=== PATIENT | female | born 1960 | race Caucasian/White ===

== ENCOUNTER 2017-08-15 17:29 | Emergency (ER) | payer MEDICAID ==
[~2017-08-15] VITALS: Ht 157.5 cm; Wt 59.0 kg
[~2017-08-15 17:29] MED LIST: ACET325T14 PO; ARIP10TA33 PO; AZIT250T89 PO; BENZ1TAB61 PO; CETI10TA32 PO; DIVA-68 PO; DIVA500T17 PO; IBUP-1223 PO; LEVO500T47 PO; LISI-167 PO; LORA10TA62 PO; LURA20TA PO; METH500T7 PO; NICO-487 TD; PALI6TAB3 IM; PRED20TA PO; TRAM50TA2 PO; TRAZ100T15 PO; TRAZ50TA18 PO; [UNRECOGNIZED DRUG - CODE] PO; invega IM
[2017-08-15 18:25] LABS: BASOPHILS % (AUTO) 0 % (0-1); EOSINOPHILS # (AUTO) 0.01 x10^3/uL (0-0.4); EOSINOPHILS % (AUTO) 0 % (1-7); LYMPHOCYTES # (AUTO) 2.13 x10^3/uL (1-3.4); LYMPHOCYTES % (AUTO) 23 % (22-44); MD NO; MEAN CORPUSCULAR HEMOGLOBIN 31.1 pg (27.0-34.8); MEAN CORPUSCULAR HGB CONC 33.5 g/dL (32.4-35.8); MEAN CORPUSCULAR VOLUME 92.9 fL (80-100); MEAN PLATELET VOLUME 7.3 fL (7.4-10.4); MONOCYTES # (AUTO) 0.36 x10^3/uL (0.2-0.8); MONOCYTES % (AUTO) 4 % (2-9); NEUTROPHILS # (AUTO) 6.66 x10^3/uL (1.8-6.8); NEUTROPHILS % (AUTO) 73 % (42-75); PLATELET COUNT 389 x10^3/uL (130-400); RED BLOOD COUNT 4.66 x10^6/uL (3.82-5.3); RED CELL DISTRIBUTION WIDTH 14.1 % (9.6-15.2)
[2017-08-15] MEDS ORDERED: SODIUM CHLORIDE FLUSH 10ML SYR IVF ONE (18:30)
[2017-08-15] MEDS ORDERED: SODIUM CHLORIDE 0.9% 1,000ML IVBOLUS ONE (18:30)
[2017-08-15 18:34] LABS: ALBUMIN 4.1 g/dL (3.4-5.0); ANION GAP 11 mmol/L (5-15); CHLORIDE 107 mmol/L (98-107)
[2017-08-15] MEDS ORDERED: HYDROcodone/APAP 5/325 TABLET PO ONE (21:00)
[2017-08-15] MEDS ORDERED: ONDANSETRON ODT 4 MG PO ONE (21:00)
[2017-08-15] MEDS ORDERED: ONDANSETRON ODT 4 MG ONE (21:06)
[2017-08-15] MEDS ORDERED: HYDROcodone/APAP 5/325 TABLET ONE (21:07)
[2017-08-15 22:07] VITALS: BP 113/89
[2017-08-16] MEDS ORDERED: ATIVAN (03:05)
[2017-08-16] MEDS ORDERED: PEPCID (03:05)
== END 2017-08-15 22:12 | disposition home or self-care (01) ==
LOC: ED 22:07
DX: S09.90XA Unspecified injury of head, initial encounter (principal); G89.29 Other chronic pain; I10 Essential (primary) hypertension; J44.9 Chronic obstructive pulmonary disease, unspecified; F31.9 Bipolar disorder, unspecified; F41.9 Anxiety disorder, unspecified; Z86.73 Personal history of transient ischemic attack (TIA), and cerebral infarction without residual deficits; Z90.49 Acquired absence of other specified parts of digestive tract; W10.9XXA Fall (on) (from) unspecified stairs and steps, initial encounter; Y04.0XXA Assault by unarmed brawl or fight, initial encounter; Y99.8 Other external cause status; Y93.89 Activity, other specified; Y92.009 Unspecified place in unspecified non-institutional (private) residence as the place of occurrence of the external cause
CPT/HCPCS: 36415; 70450; 70486; 72072; 72110; 72125; 80048; 82040; 85025; 99285; Q0162

== ENCOUNTER 2017-08-16 02:52 | Emergency (ER) | payer MEDICAID ==
[~2017-08-16] VITALS: Ht 157.5 cm; Wt 59.0 kg
[2017-08-16 03:02] VITALS: BP 119/72
[2017-08-16] MEDS ORDERED: PEPCID (03:05)
[2017-08-16] MEDS ORDERED: ATIVAN (03:05)
[2017-08-16] MEDS ORDERED: IBUPROFEN 200 MG TABLET PO ONE (03:30)
[2017-08-16] MEDS ORDERED: HYDROcodone/APAP 5/325 TABLET PO ONE ×2 (03:30)
[2017-08-16] MEDS ORDERED: HYDROcodone/APAP 5/325 TABLET ONE (03:44)
[2017-08-16] MEDS ORDERED: IBUPROFEN 200 MG TABLET ONE (03:44)
== END 2017-08-16 04:23 | disposition left against medical advice (07) ==
LOC: ED 03:13
DX: R51 Headache (principal); M54.9 Dorsalgia, unspecified; Z88.1 Allergy status to other antibiotic agents; Z88.0 Allergy status to penicillin; Z88.8 Allergy status to other drugs, medicaments and biological substances; Y04.8XXA Assault by other bodily force, initial encounter; Y93.89 Activity, other specified; Y99.8 Other external cause status; Y92.89 Other specified places as the place of occurrence of the external cause
CPT/HCPCS: 99284

== ENCOUNTER 2017-08-16 18:53 | Emergency (ER) | payer MEDICAID ==
[~2017-08-16] VITALS: Ht 157.5 cm; Wt 56.7 kg
[~2017-08-16 18:53] MED LIST changes: +ATIVAN; +PEPCID
[2017-08-16 18:57] VITALS: BP 152/90
== END 2017-08-16 23:07 | disposition left against medical advice (07) ==
LOC: ED 23:01
DX: M79.605 Pain in left leg (principal); M79.604 Pain in right leg; Y04.8XXA Assault by other bodily force, initial encounter; Y93.89 Activity, other specified; Y99.8 Other external cause status; Y92.89 Other specified places as the place of occurrence of the external cause
CPT/HCPCS: 99281

== ENCOUNTER 2017-08-17 17:25 | Emergency (ER) | payer MEDICAID ==
[~2017-08-17] VITALS: Ht 157.5 cm; Wt 61.9 kg
[2017-08-17 17:32] VITALS: BP 113/80
== END 2017-08-17 21:15 | disposition left against medical advice (07) ==
LOC: ED 21:09
DX: M54.9 Dorsalgia, unspecified (principal); Y04.2XXA Assault by strike against or bumped into by another person, initial encounter; Y93.89 Activity, other specified; Y92.89 Other specified places as the place of occurrence of the external cause; Y99.8 Other external cause status; M54.6 Pain in thoracic spine
CPT/HCPCS: 99281

== ENCOUNTER 2017-08-17 23:25 | Emergency (ER) | payer MEDICAID ==
[~2017-08-17] VITALS: Ht 160 cm; Wt 70.0 kg
[2017-08-17 23:29] VITALS: BP 131/79
== END 2017-08-18 02:18 | disposition left against medical advice (07) ==
LOC: ED 08-18 02:12
DX: M79.606 Pain in leg, unspecified (principal); M79.643 Pain in unspecified hand; M54.9 Dorsalgia, unspecified

== ENCOUNTER 2017-08-18 16:48 | Emergency (ER) | payer MEDICAID ==
[~2017-08-18] VITALS: Ht 157.5 cm; Wt 62.5 kg
[2017-08-18 16:50] VITALS: BP 118/80
[2017-08-18] MEDS ORDERED: IBUPROFEN 200 MG TABLET PO ONE (17:30)
== END 2017-08-18 20:46 | disposition left against medical advice (07) ==
LOC: ED 20:40
DX: R52 Pain, unspecified (principal)
CPT/HCPCS: 99281

== ENCOUNTER 2017-08-19 10:00 | Emergency (ER) | payer MEDICAID ==
[~2017-08-19] VITALS: Ht 157.5 cm; Wt 59.0 kg
[2017-08-19 10:07] VITALS: BP 122/89
== END 2017-08-19 10:52 | disposition home or self-care (01) ==
LOC: ED 10:38
DX: G44.019 Episodic cluster headache, not intractable (principal)
CPT/HCPCS: 99283

== ENCOUNTER 2019-11-29 16:07 | Emergency (ER) | payer MEDICAID ==
[~2019-11-29] VITALS: Ht 157.5 cm; Wt 65.8 kg
[~2019-11-29 16:07] MED LIST changes: +DIVA-61 PO; -DIVA-68 PO; +TRAZ-175 PO; -TRAZ100T15 PO; -TRAZ50TA18 PO; +TRAZ50TA66 PO
[2019-11-29 16:12] VITALS: BP 148/93
--- NOTE | 2019-11-29 16:29 | NUR ---
1 BAG OF BELONGINGS PLACED IN PSYCH LOCKER
[2019-11-29 17:06] LABS: BASOPHILS # (AUTO) 0.05 x10^3/uL (0-0.1); BASOPHILS % (AUTO) 1 % (0-1); EOSINOPHILS # (AUTO) 0.08 x10^3/uL (0-0.4); EOSINOPHILS % (AUTO) 1 % (1-7); LYMPHOCYTES # (AUTO) 2.12 x10^3/uL (1-3.4); LYMPHOCYTES % (AUTO) 26 % (22-44); MD NO; MEAN CORPUSCULAR HEMOGLOBIN 30.8 pg (27.0-34.8); MEAN CORPUSCULAR HGB CONC 33.9 g/dL (32.4-35.8); MEAN CORPUSCULAR VOLUME 91.1 fL (80-100); MEAN PLATELET VOLUME 7.6 fL (7.4-10.4); MONOCYTES # (AUTO) 0.48 x10^3/uL (0.2-0.8); MONOCYTES % (AUTO) 6 % (2-9); NEUTROPHILS # (AUTO) 5.52 x10^3/uL (1.8-6.8); NEUTROPHILS % (AUTO) 67 % (42-75); PLATELET COUNT 367 x10^3/uL (130-400); RED BLOOD COUNT 4.55 x10^6/uL (3.82-5.3)
[2019-11-29 17:19] LABS: ALANINE AMINOTRANSFERASE 17 U/L (12-78); ALBUMIN 3.4 g/dL (3.4-5.0); ANION GAP 7 mmol/L (5-15); CALCIUM 8.6 mg/dL (8.5-10.1); CHLORIDE 109 mmol/L (98-107); SALICYLATE LEVEL 4.9 mg/dL (2.8-20.0)
[2019-11-29 17:30] LABS: ALKALINE PHOSPHATASE 105 U/L (45-117); BILIRUBIN,TOTAL 0.4 mg/dL (0.2-1.0); CREATININE 0.76 mg/dL (0.55-1.02); TOTAL PROTEIN 7.4 g/dL (6.4-8.2)
--- NOTE | 2019-11-29 17:30 | NUR ---
PT RESTING IN GURNEY WITH SITTER AT BEDSIDE, PT TO BE ACCEPTED BY [facility]
[2019-11-29 17:38] LABS: AMPHETAMINE SCREEN, URINE Negative (Negative); BARBITURATE SCREEN, URINE Negative (Negative); BENZODIAZEPINE SCREEN, URINE Negative (Negative); CANNABINOID SCREEN, URINE Negative (Negative); COCAINE SCREEN, URINE Negative (Negative); METHADONE SCREEN, URINE Negative (Negative); OPIATE SCREEN, URINE Negative (Negative)
[2019-11-29 17:42] LABS: MICROSCOPIC INDICATED
--- NOTE | 2019-11-29 18:22 | NUR ---
REPORT TO PREETHI MEDRANO
[2019-11-29] MEDS ORDERED: TRAZODONE 100MG TABLET PO SCH (21:00)
[2019-11-30] MEDS ORDERED: LISI5TAB7 PO (00:10)
[2019-11-30] MEDS ORDERED: LORA-446 PO (00:11)
[2019-11-30] MEDS ORDERED: QUET100T PO (00:13)
[2019-11-30] MEDS ORDERED: ESCI5TAB PO (00:14)
[2019-11-30] MEDS ORDERED: LISINOPRIL 10 MG TABLET PO SCH (09:00)
[2019-11-30] MEDS ORDERED: ARIPIPRAZOLE 10 MG TABLET PO SCH (09:00)
== END 2019-11-29 20:06 ==
LOC: ED 16:42
DX: R45.851 Suicidal ideations (principal); F32.9 Major depressive disorder, single episode, unspecified; I10 Essential (primary) hypertension; J44.9 Chronic obstructive pulmonary disease, unspecified; G89.29 Other chronic pain; Z86.73 Personal history of transient ischemic attack (TIA), and cerebral infarction without residual deficits; Z90.89 Acquired absence of other organs; Z90.49 Acquired absence of other specified parts of digestive tract
CPT/HCPCS: 36415; 80053; 80307; 81001; 84443; 85025; 87086; 99284; 99285

== ENCOUNTER 2019-11-29 18:05 | Inpatient (IN) | payer MEDICAID ==
[~2019-11-29] VITALS: Ht 157.5 cm; Wt 61.3 kg
[2019-11-29] MEDS ORDERED: DOCUSATE 100 MG CAPSULE PO PRN (18:30)
[2019-11-29] MEDS ORDERED: POLYETHYLENE GLYCOL 17 GM PACKET PO PRN (18:30)
[2019-11-29 19:00] VITALS: BP 148/93
[2019-11-29 19:23] LABS: CHOL/HDL RATIO 3.2; FREE T4 (FREE THYROXINE) 1.33 ng/dL (0.76-1.46); LDL/HDL RATIO 1.8 (0.5-3.0)
[2019-11-29 19:24] VITALS: BP 148/93
[2019-11-30] MEDS ORDERED: LISI5TAB7 PO (00:10)
[2019-11-30] MEDS ORDERED: LORA-446 PO (00:11)
[2019-11-30] MEDS ORDERED: QUET100T PO (00:13)
[2019-11-30] MEDS ORDERED: ESCI5TAB PO (00:14)
[2019-11-30 01:10] LABS: MICROSCOPIC NOT IND
[2019-11-30 07:32] VITALS: BP 134/89
[2019-11-30] MEDS: ACETAMINOPHEN 325 MG TABLET PO PRN (14:47)
[2019-11-30 20:00] VITALS: BP 147/99
[2019-11-30] MEDS: ARIPIPRAZOLE 10 MG TABLET PO SCH (20:45)
[2019-11-30] MEDS: TRAZODONE 50MG TABLET PO SCH (21:00)
[2019-12-01 07:10] VITALS: BP 141/97
[2019-12-01] MEDS: ACETAMINOPHEN 325 MG TABLET PO PRN ×4 (07:43→20:43)
[2019-12-01] MEDS: ARIPIPRAZOLE 10 MG TABLET PO SCH ×2 (07:43→20:43)
[2019-12-01] MEDS: LISINOPRIL 5 MG TABLET PO SCH (07:45)
[2019-12-01] MEDS ORDERED: ONDANSETRON ODT 4 MG PO PRN (08:00)
[2019-12-01 19:15] VITALS: BP 118/77
[2019-12-01] MEDS: TRAZODONE 50MG TABLET PO SCH (20:43)
[2019-12-02 07:10] VITALS: BP 114/80
[2019-12-02] MEDS: ARIPIPRAZOLE 10 MG TABLET PO SCH ×2 (08:27→20:25)
[2019-12-02] MEDS: LISINOPRIL 5 MG TABLET PO SCH (08:28)
[2019-12-02] MEDS: ACETAMINOPHEN 325 MG TABLET PO PRN ×2 (08:35→20:26)
[2019-12-02 19:30] VITALS: BP 128/84
[2019-12-02] MEDS: TRAZODONE 50MG TABLET PO SCH (20:26)
[2019-12-03 07:22] VITALS: BP 124/86
[2019-12-03] MEDS: LISINOPRIL 5 MG TABLET PO SCH (08:33)
[2019-12-03] MEDS: ARIPIPRAZOLE 10 MG TABLET PO SCH ×2 (08:33→21:08)
[2019-12-03] MEDS: ACETAMINOPHEN 325 MG TABLET PO PRN ×2 (11:17→19:58)
[2019-12-03 19:55] VITALS: BP 133/92
[2019-12-03] MEDS: TRAZODONE 50MG TABLET PO SCH (21:08)
[2019-12-04 07:51] VITALS: BP 100/69
[2019-12-04] MEDS: ARIPIPRAZOLE 10 MG TABLET PO SCH ×2 (08:30→20:42)
[2019-12-04] MEDS: LISINOPRIL 5 MG TABLET PO SCH (08:31)
[2019-12-04] MEDS: ACETAMINOPHEN 325 MG TABLET PO PRN ×2 (08:35→20:42)
[2019-12-04 19:49] VITALS: BP 99/62
[2019-12-04 20:39] VITALS: BP 115/76
[2019-12-04] MEDS: TRAZODONE 50MG TABLET PO SCH (20:42)
[2019-12-05 07:52] VITALS: BP 117/83
[2019-12-05] MEDS: LISINOPRIL 5 MG TABLET PO SCH (08:42)
[2019-12-05] MEDS: ARIPIPRAZOLE 10 MG TABLET PO SCH ×2 (08:42→20:11)
[2019-12-05] MEDS: ACETAMINOPHEN 325 MG TABLET PO PRN ×2 (08:47→20:11)
[2019-12-05 19:58] VITALS: BP 117/82
[2019-12-05] MEDS: TRAZODONE 50MG TABLET PO SCH (20:11)
[2019-12-06 07:38] VITALS: BP 121/82
[2019-12-06] MEDS: LISINOPRIL 5 MG TABLET PO SCH (08:51)
[2019-12-06] MEDS: ARIPIPRAZOLE 10 MG TABLET PO SCH ×2 (08:52→20:01)
[2019-12-06] MEDS: ACETAMINOPHEN 325 MG TABLET PO PRN (08:56)
[2019-12-06] MEDS ORDERED: LISI5TAB7 PO (12:30)
[2019-12-06] MEDS ORDERED: TRAZ50TA66 PO (12:30)
[2019-12-06] MEDS ORDERED: ARIP10TA33 PO (12:30)
[2019-12-06 19:35] VITALS: BP 111/76
[2019-12-06] MEDS: TRAZODONE 50MG TABLET PO SCH (20:01)
[2019-12-07 07:49] VITALS: BP 118/80
[2019-12-07] MEDS: ARIPIPRAZOLE 10 MG TABLET PO SCH (08:20)
[2019-12-07] MEDS: ACETAMINOPHEN 325 MG TABLET PO PRN (08:20)
[2019-12-07] MEDS: LISINOPRIL 5 MG TABLET PO SCH (08:20)
== END 2019-12-07 09:34 | disposition home or self-care (01) | DRG 750 ==
LOC: 3E 19:10
PROVIDERS: ADMIT Psychiatry & Neurology Psychosomatic Medicine; ATTEND Psychiatry & Neurology Psychosomatic Medicine
DX: F25.0 Schizoaffective disorder, bipolar type (principal); R56.9 Unspecified convulsions; R45.851 Suicidal ideations; F12.10 Cannabis abuse, uncomplicated; F15.90 Other stimulant use, unspecified, uncomplicated; F17.210 Nicotine dependence, cigarettes, uncomplicated; G89.29 Other chronic pain; I10 Essential (primary) hypertension; J44.9 Chronic obstructive pulmonary disease, unspecified; Z88.0 Allergy status to penicillin; Z88.1 Allergy status to other antibiotic agents; Z88.6 Allergy status to analgesic agent; Z88.2 Allergy status to sulfonamides; Z88.8 Allergy status to other drugs, medicaments and biological substances; Z79.899 Other long term (current) drug therapy; Z81.8 Family history of other mental and behavioral disorders; Z86.73 Personal history of transient ischemic attack (TIA), and cerebral infarction without residual deficits
CPT/HCPCS: 36415; 80053; 80061; 80307; 81001; 81003; 84439; 84443; 85025; 87086; 93005; 99284; 99285; Q0162

== ENCOUNTER 2019-12-13 15:53 | Emergency (ER) | payer MEDICAID ==
[~2019-12-13] VITALS: Ht 157.5 cm; Wt 65.1 kg
[~2019-12-13 15:53] MED LIST changes: +ESCI5TAB PO; +LISI5TAB7 PO; +LORA-446 PO; +QUET100T PO
[2019-12-13 16:07] VITALS: BP 105/78
--- NOTE | 2019-12-13 16:24 | NUR ---
FIRST CONTACT WITH PT. PT TO TRIAGE WITH DRUG ENFORCEMENT ADMINISTRATION AGENT. STATES PT WAS RELEASED LAST SATURDAY FROM [facility], PT'S DRUG ENFORCEMENT ADMINISTRATION AGENT STATES PT IS "FAILURE TO THRIVE" WELL PT IS "SEEING THINGS." PT DENIES SI/HI IN ROOM. PT LIVES CURRENTLY AT [place] IS ANOTHER DAY INTERMEDIATE. PT'S AOX4. RESPS EVEN AND UNLABORED. DRUG ENFORCEMENT ADMINISTRATION AGENT AT BEDSIDE.
--- NOTE | 2019-12-13 16:25 | NUR ---
ALL BELONGINGS PUT INTO BAGS AND PUT INTO THE LOCKER AT THIS TIME. HOSPITAL SOCKS GIVEN.
--- NOTE | 2019-12-13 16:28 | NUR ---
PT'S ENDOSCOPY SUPPORT SPECIALIST'S NUMBER REGINALD [phone]
--- NOTE | 2019-12-13 16:39 | NUR ---
PT IS NOT ABLE TO PROVIDE URINE SAMPLE AT THIS TIME. PT AWARE OF NEED FOR UA.
--- NOTE | 2019-12-13 16:39 | NUR ---
LAB AT BEDSIDE.
[2019-12-13 16:49] LABS: BASOPHILS # (AUTO) 0.05 x10^3/uL (0-0.1); BASOPHILS % (AUTO) 1 % (0-1); EOSINOPHILS # (AUTO) 0.07 x10^3/uL (0-0.4); EOSINOPHILS % (AUTO) 1 % (1-7); LYMPHOCYTES # (AUTO) 2.29 x10^3/uL (1-3.4); LYMPHOCYTES % (AUTO) 26 % (22-44); MD NO; MEAN CORPUSCULAR HEMOGLOBIN 30.7 pg (27.0-34.8); MEAN CORPUSCULAR HGB CONC 33.9 g/dL (32.4-35.8); MEAN CORPUSCULAR VOLUME 90.6 fL (80-100); MONOCYTES # (AUTO) 0.69 x10^3/uL (0.2-0.8); MONOCYTES % (AUTO) 8 % (2-9); NEUTROPHILS # (AUTO) 5.86 x10^3/uL (1.8-6.8); NEUTROPHILS % (AUTO) 65 % (42-75); PLATELET COUNT 309 x10^3/uL (130-400); RED BLOOD COUNT 4.67 x10^6/uL (3.82-5.3); RED CELL DISTRIBUTION WIDTH 15.5 % (9.6-15.2)
[2019-12-13 16:59] LABS: ALANINE AMINOTRANSFERASE 25 U/L (12-78); ALBUMIN 3.5 g/dL (3.4-5.0); ANION GAP 6 mmol/L (5-15); CALCIUM 8.7 mg/dL (8.5-10.1); CHLORIDE 109 mmol/L (98-107); SALICYLATE LEVEL 3.4 mg/dL (2.8-20.0)
[2019-12-13 17:01] LABS: ALKALINE PHOSPHATASE 102 U/L (45-117); BILIRUBIN,TOTAL 0.3 mg/dL (0.2-1.0); TOTAL PROTEIN 7.3 g/dL (6.4-8.2)
--- NOTE | 2019-12-13 17:04 | NUR ---
DIET TRAY ORDERED AT THIS TIME.
--- NOTE | 2019-12-13 17:40 | NUR ---
MEAL TRAY PROVIDED AT THIS TIME.
--- NOTE | 2019-12-13 18:24 | NUR ---
PT IS NOT ABLE TO PROVIDE URINE SAMPLE AT THIS TIME AGAIN. PT AWARE OF NEED FOR UA.
--- NOTE | 2019-12-13 18:49 | NUR ---
REPORT GIVEN TO CE MEDRANO.
--- NOTE | 2019-12-13 19:01 | NUR ---
REPORT FROM JOE MEDRANO, PT RESTING ON [employer], PROVIDED WATER. PT UNABLE TO PROVIDE URINE SAMPLE AT THIS TIME.
--- NOTE | 2019-12-13 19:54 | NUR ---
PT UP TO BATHROOM FOR URINE SAMPLE.
--- NOTE | 2019-12-13 20:12 | NUR ---
PT RESTING IN NAD, RESPIRATIONS EVEN AND UNLABORED. SITTER AT DOORWAY FOR SAFETY WATCH.
[2019-12-13 20:18] LABS: AMPHETAMINE SCREEN, URINE Negative (Negative); BARBITURATE SCREEN, URINE Negative (Negative); BENZODIAZEPINE SCREEN, URINE Negative (Negative); CANNABINOID SCREEN, URINE Negative (Negative); COCAINE SCREEN, URINE Negative (Negative); METHADONE SCREEN, URINE Negative (Negative); OPIATE SCREEN, URINE Negative (Negative)
--- NOTE | 2019-12-13 21:01 | NUR ---
TP RN: [facility] NURSE CALLED AND SHE WILL LOOK INTO PT AND CALL ME BACK.
--- NOTE | 2019-12-13 22:16 | NUR ---
TP RN: ALEC FROM [facility] CALLED AND PROVIDED BED NUMBER FOR PT TO BE ADMITTED TO UNIT
--- NOTE | 2019-12-13 22:32 | NUR ---
REPORT GIVEN TO MAXIMUS MEDRANO.
== END 2019-12-13 23:08 | disposition other institution (70) ==
LOC: ED 18:38
DX: R45.851 Suicidal ideations (principal); F20.0 Paranoid schizophrenia; I10 Essential (primary) hypertension
CPT/HCPCS: 36415; 80053; 80307; 85025; 99283

== ENCOUNTER 2019-12-13 22:30 | Inpatient (IN) | payer MEDICAID ==
[~2019-12-13] VITALS: Ht 157.5 cm; Wt 62.0 kg
[2019-12-13] MEDS ORDERED: POLYETHYLENE GLYCOL 17 GM PACKET PO PRN (23:00)
[2019-12-13] MEDS ORDERED: ONDANSETRON ODT 4 MG PO PRN (23:00)
[2019-12-13] MEDS ORDERED: DOCUSATE 100 MG CAPSULE PO PRN (23:00)
[2019-12-13] MEDS ORDERED: BISACODYL 10 MG SUPP PR PRN (23:00)
[2019-12-13 23:10] VITALS: BP 126/86
[2019-12-13] MEDS ORDERED: PLEASE ENTER HEIGHT AND WEIGHT MC SCH (23:45)
[2019-12-14 00:18] VITALS: BP 126/86
[2019-12-14 04:00] LABS: MICROSCOPIC INDICATED
[2019-12-14 07:45] VITALS: BP 142/92
[2019-12-14] MEDS ORDERED: ARIPIPRAZOLE 10 MG TABLET PO SCH (09:00)
[2019-12-14] MEDS: ACETAMINOPHEN 325 MG TABLET PO PRN ×3 (09:24→20:15)
[2019-12-14] MEDS: LISINOPRIL 5 MG TABLET PO SCH (09:25)
[2019-12-14] MEDS: NICOTINE 14MG/24 HR PATCH.TD24 TD SCH (14:30)
[2019-12-14 20:00] VITALS: BP 116/73
[2019-12-14] MEDS: MELATONIN 5 MG TABLET PO SCH (20:15)
[2019-12-14] MEDS: ZIPRASIDONE 40MG CAPSULE PO SCH (20:15)
[2019-12-14] MEDS ORDERED: TRAZODONE 50MG TABLET PO SCH (21:00)
[2019-12-15 07:05] VITALS: BP 129/84
[2019-12-15] MEDS: LISINOPRIL 5 MG TABLET PO SCH (07:59)
[2019-12-15] MEDS: ZIPRASIDONE 40MG CAPSULE PO SCH ×2 (07:59→19:58)
[2019-12-15] MEDS: NICOTINE 14MG/24 HR PATCH.TD24 TD SCH (17:36)
[2019-12-15 19:30] VITALS: BP 155/98
[2019-12-15] MEDS: ACETAMINOPHEN 325 MG TABLET PO PRN (19:58)
[2019-12-15] MEDS: MELATONIN 5 MG TABLET PO SCH (19:58)
[2019-12-15 20:32] VITALS: BP 146/98
[2019-12-16 07:10] VITALS: BP 133/89
[2019-12-16] MEDS: LISINOPRIL 5 MG TABLET PO SCH (08:36)
[2019-12-16] MEDS: ZIPRASIDONE 40MG CAPSULE PO SCH (08:36)
[2019-12-16] MEDS: NICOTINE 14MG/24 HR PATCH.TD24 TD SCH (08:58)
[2019-12-16] MEDS: ACETAMINOPHEN 325 MG TABLET PO PRN ×2 (11:59→18:24)
[2019-12-16 19:20] VITALS: BP 104/74
[2019-12-16] MEDS: MELATONIN 5 MG TABLET PO SCH (20:01)
[2019-12-17 07:05] VITALS: BP 111/76
[2019-12-17] MEDS: ACETAMINOPHEN 325 MG TABLET PO PRN ×2 (08:05→13:01)
[2019-12-17] MEDS: OLANZAPINE 10 MG TABLET PO SCH (08:05)
[2019-12-17] MEDS: LISINOPRIL 5 MG TABLET PO SCH (08:05)
[2019-12-17] MEDS: NICOTINE 14MG/24 HR PATCH.TD24 TD SCH (08:06)
[2019-12-17 19:18] VITALS: BP 90/64
[2019-12-17] MEDS: MELATONIN 5 MG TABLET PO SCH (20:24)
[2019-12-18 07:00] VITALS: BP 118/76
[2019-12-18] MEDS: LISINOPRIL 5 MG TABLET PO SCH ×2 (08:17→09:00)
[2019-12-18] MEDS: OLANZAPINE 10 MG TABLET PO SCH (08:17)
[2019-12-18] MEDS: NICOTINE 14MG/24 HR PATCH.TD24 TD SCH (08:17)
[2019-12-18] MEDS: ACETAMINOPHEN 325 MG TABLET PO PRN ×2 (08:24→20:06)
[2019-12-18 19:08] VITALS: BP 106/68
[2019-12-18] MEDS: MELATONIN 5 MG TABLET PO SCH (20:06)
[2019-12-19 07:00] VITALS: BP 116/80
[2019-12-19] MEDS: OLANZAPINE 10 MG TABLET PO SCH ×2 (08:34→20:23)
[2019-12-19] MEDS: LISINOPRIL 5 MG TABLET PO SCH (08:34)
[2019-12-19] MEDS: NICOTINE 14MG/24 HR PATCH.TD24 TD SCH (08:35)
[2019-12-19] MEDS: ACETAMINOPHEN 325 MG TABLET PO PRN ×3 (09:36→20:23)
[2019-12-19 19:30] VITALS: BP 95/65
[2019-12-19] MEDS: MELATONIN 5 MG TABLET PO SCH (20:23)
[2019-12-20 07:00] VITALS: BP 127/83
[2019-12-20] MEDS: LISINOPRIL 5 MG TABLET PO SCH (08:25)
[2019-12-20] MEDS: OLANZAPINE 10 MG TABLET PO SCH (08:26)
[2019-12-20] MEDS: NICOTINE 14MG/24 HR PATCH.TD24 TD SCH (08:26)
[2019-12-20] MEDS: SERTRALINE 50MG TABLET PO SCH (12:04)
[2019-12-20] MEDS: ACETAMINOPHEN 325 MG TABLET PO PRN ×2 (14:22→20:29)
[2019-12-20] MEDS: ARIPIPRAZOLE 10 MG TABLET PO SCH (16:47)
[2019-12-20 19:56] VITALS: BP 91/68
[2019-12-20] MEDS: MELATONIN 5 MG TABLET PO SCH (20:29)
[2019-12-21 08:02] VITALS: BP 128/76
[2019-12-21] MEDS: ARIPIPRAZOLE 10 MG TABLET PO SCH ×2 (08:45→16:18)
[2019-12-21] MEDS: SERTRALINE 50MG TABLET PO SCH (08:47)
[2019-12-21] MEDS: NICOTINE 14MG/24 HR PATCH.TD24 TD SCH (08:47)
[2019-12-21] MEDS: LISINOPRIL 5 MG TABLET PO SCH (08:51)
[2019-12-21] MEDS ORDERED: SERT50TA28 PO (12:58)
[2019-12-21] MEDS ORDERED: NICO-486 TD (12:58)
[2019-12-21] MEDS ORDERED: LISI5TAB7 PO (12:58)
[2019-12-21] MEDS ORDERED: MELA5TAB14 PO (12:58)
[2019-12-21] MEDS ORDERED: ARIP10TA33 PO (12:58)
[2019-12-21 19:47] VITALS: BP 132/87
[2019-12-21] MEDS: MELATONIN 5 MG TABLET PO SCH (20:18)
[2019-12-21] MEDS: ACETAMINOPHEN 325 MG TABLET PO PRN (20:18)
[2019-12-21] MEDS ORDERED: LORazepam 0.5MG TABLET PO PRN (20:30)
[2019-12-22 07:31] VITALS: BP 106/74
[2019-12-22] MEDS: SERTRALINE 50MG TABLET PO SCH (08:50)
[2019-12-22] MEDS: LISINOPRIL 5 MG TABLET PO SCH (08:50)
[2019-12-22] MEDS: ARIPIPRAZOLE 10 MG TABLET PO SCH (08:50)
[2019-12-22] MEDS: NICOTINE 14MG/24 HR PATCH.TD24 TD SCH (08:50)
[2019-12-22] MEDS: ACETAMINOPHEN 325 MG TABLET PO PRN (09:03)
== END 2019-12-22 10:30 | disposition home or self-care (01) | DRG 750 ==
LOC: 3E 23:01
PROVIDERS: ADMIT Psychiatry & Neurology Psychosomatic Medicine; ATTEND Psychiatry & Neurology Psychosomatic Medicine
DX: F25.0 Schizoaffective disorder, bipolar type (principal); I50.9 Heart failure, unspecified; R45.851 Suicidal ideations; I11.0 Hypertensive heart disease with heart failure; F09 Unspecified mental disorder due to known physiological condition; F12.10 Cannabis abuse, uncomplicated; F17.210 Nicotine dependence, cigarettes, uncomplicated; F41.9 Anxiety disorder, unspecified; G47.00 Insomnia, unspecified; G89.29 Other chronic pain; J44.9 Chronic obstructive pulmonary disease, unspecified; R62.7 Adult failure to thrive; J45.909 Unspecified asthma, uncomplicated; Z79.899 Other long term (current) drug therapy; Z86.73 Personal history of transient ischemic attack (TIA), and cerebral infarction without residual deficits; Z88.0 Allergy status to penicillin; Z88.1 Allergy status to other antibiotic agents; Z88.6 Allergy status to analgesic agent; Z88.2 Allergy status to sulfonamides; Z88.8 Allergy status to other drugs, medicaments and biological substances; Z83.3 Family history of diabetes mellitus
CPT/HCPCS: 36415; 80053; 80307; 81001; 82140; 85025; 87086; 99283; 99285; Q0162; 92523-GN

== ENCOUNTER 2019-12-29 13:19 | Emergency (ER) | payer MEDICAID ==
[~2019-12-29] VITALS: Ht 157.5 cm; Wt 60.4 kg
[~2019-12-29 13:19] MED LIST changes: +MELA5TAB14 PO; +NICO-486 TD; +SERT50TA28 PO
[2019-12-29 13:25] VITALS: BP 113/67
[2019-12-29] MEDS ORDERED: LORazepam 2 MG/ML, 1ML ONE (13:53)
--- NOTE | 2019-12-29 13:58 | NUR ---
PT FROM [place] IS ANOTHER DAY CARE FACILITY. SHE IS ACCOMPANIED BY A STAFF MEMBER. PER STAFF MEMBER PT IS LEAVING THE FACILITY IN THE MIDDLE OF THE NIGHT, SHE CLAIMS SHE IS GETTING CHASED BY SNAKES. PT WITH HX SCHIZ. PER STAFF MEMBER PT TRIED TO JUMP OUT OF THE CAR ON THE DRIVE HERE. PT WITH MULTIPLE ATTEMPTS TO LEAVE SINCE BEING ROOMED, PT REDIRECTED TO THE . PT STATES "I WANT TO SEE MY SON" PT GETTING AGGRESSIVE WITH STAFF WHEN ATTEMPTING TO LEAVE. SWINGING ARMS. PT ABLE TO ANSWER ALL ORIENTATION QUESTIONS APPROPRIATELY, AO X4. PT IMPULSIVE AND FIXATED ON LEAVING. NO SI/HI EXPRESSED. ERMD IN TO EVAL PT. ORDERS RECIEVED FOR MEDICATION, PT MEDICATED PER AUG. SONU [place] CALLED, HE IS TO COME EVAL.
[2019-12-29] MEDS ORDERED: LORazepam 2 MG/ML, 1ML IM ONE (14:00)
--- NOTE | 2019-12-29 15:03 | NUR ---
SONU IN TO EVAL PT. PLAN TO MED CLEAR AND DC BACK TO FACILTIY, PT AT BASELINE
[2019-12-29 15:18] LABS: BASOPHILS # (AUTO) 0.05 x10^3/uL (0-0.1); BASOPHILS % (AUTO) 1 % (0-1); EOSINOPHILS # (AUTO) 0.05 x10^3/uL (0-0.4); EOSINOPHILS % (AUTO) 1 % (1-7); LYMPHOCYTES # (AUTO) 2.07 x10^3/uL (1-3.4); LYMPHOCYTES % (AUTO) 22 % (22-44); MD NO; MEAN CORPUSCULAR HEMOGLOBIN 30.9 pg (27.0-34.8); MEAN CORPUSCULAR VOLUME 90.9 fL (80-100); MEAN PLATELET VOLUME 8.3 fL (7.4-10.4); MONOCYTES # (AUTO) 0.82 x10^3/uL (0.2-0.8); MONOCYTES % (AUTO) 9 % (2-9); NEUTROPHILS # (AUTO) 6.61 x10^3/uL (1.8-6.8); NEUTROPHILS % (AUTO) 69 % (42-75); PLATELET COUNT 312 x10^3/uL (130-400); RED BLOOD COUNT 4.27 x10^6/uL (3.82-5.3); RED CELL DISTRIBUTION WIDTH 14.6 % (9.6-15.2)
--- NOTE | 2019-12-29 15:23 | NUR ---
Member from [facility] phone number-Fariha Kimble [phone] would like to be called before patient is discharged as she will pick patient up.
[2019-12-29 15:25] LABS: ALBUMIN 3.3 g/dL (3.4-5.0); ANION GAP 6 mmol/L (5-15); CALCIUM 8.9 mg/dL (8.5-10.1); CHLORIDE 110 mmol/L (98-107); CREATININE 0.72 mg/dL (0.55-1.02)
[2019-12-29 15:57] LABS: MICROSCOPIC NOT IND
[2019-12-29] MEDS ORDERED: ACETAMINOPHEN 325 MG TABLET PO ONE (17:30)
== END 2019-12-29 18:06 | disposition home or self-care (01) ==
LOC: ED 15:06
DX: F20.1 Disorganized schizophrenia (principal); M51.34 Other intervertebral disc degeneration, thoracic region; I10 Essential (primary) hypertension
CPT/HCPCS: 36415; 72072; 80048; 81003; 82040; 85025; 96372; 99284; J2060

== ENCOUNTER 2020-09-21 17:59 | Emergency (ER) | payer MEDICAID ==
[~2020-09-21] VITALS: Ht 157.5 cm; Wt 70.0 kg
[~2020-09-21 17:59] MED LIST changes: -ESCI5TAB PO; +ESCI5TAB8 PO; +LORA-59 PO; -LORA10TA62 PO; +METH-639 PO; -METH500T7 PO; -NICO-487 TD; +NICO-587 TD
[2020-09-21 18:03] VITALS: BP 114/81
--- NOTE | 2020-09-21 18:05 | NUR ---
PT BIB EMS FOR [facility]IBLE [facility], ON LEGAL HOLD FOR FAILURE TO CARE FORSELF. PT HAS CO WEAKNESS AND DIFFICULTY URINATING W MINIMAL URINE OUPUT. DENIES PAIN, N/V, EKD DONE. VSS.
--- NOTE | 2020-09-21 18:57 | NUR ---
REPORT TO DILAN
[2020-09-21 19:01] LABS: BASOPHILS % (AUTO) 1 % (0-1); EOSINOPHILS % (AUTO) 2 % (1-7); LYMPHOCYTES % (AUTO) 38 % (22-44); MEAN CORPUSCULAR HGB CONC 33.7 g/dL (32.4-35.8); MEAN PLATELET VOLUME 7.1 fL (7.4-10.4); MONOCYTES % (AUTO) 11 % (2-9); NEUTROPHILS % (AUTO) 48 % (42-75); PLATELET COUNT 324 x10^3/uL (130-400); RED BLOOD COUNT 4.61 x10^6/uL (3.82-5.3); RED CELL DISTRIBUTION WIDTH 15.3 % (9.6-15.2)
[2020-09-21 19:05] LABS: MD NO
[2020-09-21 19:14] LABS: ALBUMIN 3.2 g/dL (3.4-5.0); ANION GAP 5 mmol/L (5-15); CALCIUM 8.3 mg/dL (8.5-10.1); CHLORIDE 111 mmol/L (98-107); CREATININE 1.09 mg/dL (0.55-1.02)
[2020-09-21 19:45] LABS: MICROSCOPIC AUTO
--- NOTE | 2020-09-21 19:53 | NUR ---
Pt calm and cooperative in room. Pt ambulated to BR without difficulty. Back to room, UA provided and sent. Warm blanket given. Sitter outside room and pt free of harm. Room secured. Will continue to monitor.
--- NOTE | 2020-09-21 22:25 | NUR ---
THROUGHPUT RN: CALLED [facility] REGARDING ACCEPTING PT BACK, FAXED H&P, AWAITING TO HERE BACK
--- NOTE | 2020-09-21 23:26 | NUR ---
EMS here to take pt back to [facility]. Report to EMS. Pt back to facilty with no issues. VSS>
== END 2020-09-21 23:30 ==
LOC: ED 20:43
DX: N30.00 Acute cystitis without hematuria (principal); R94.31 Abnormal electrocardiogram [ECG] [EKG]; R39.15 Urgency of urination; I10 Essential (primary) hypertension; J44.9 Chronic obstructive pulmonary disease, unspecified; G89.29 Other chronic pain; Z90.89 Acquired absence of other organs; Z90.49 Acquired absence of other specified parts of digestive tract; Z87.891 Personal history of nicotine dependence; Z86.73 Personal history of transient ischemic attack (TIA), and cerebral infarction without residual deficits
CPT/HCPCS: 36415; 80048; 81001; 82040; 85025; 87086; 93005; 99284; 99285

== ENCOUNTER 2020-10-06 17:20 | Emergency (ER) | payer MEDICAID ==
[~2020-10-06] VITALS: Ht 157.5 cm; Wt 66.1 kg
--- NOTE | 2020-10-06 19:19 | NUR ---
PT TO ROOM FROM LOBBY
[2020-10-06 19:24] VITALS: BP 111/73
--- NOTE | 2020-10-06 19:25 | NUR ---
cc of "not feeling right". when asked to eleborate pt says "I dont know how". Pt states "my meds". when asked if she needs them or if they are causing any problems pt states "I haven't been on them". when asked what they are pt states "I don't know, all of them".
--- NOTE | 2020-10-06 20:12 | NUR ---
ER PA AT BEDSIDE
--- NOTE | 2020-10-06 20:32 | NUR ---
PT UNABLE TO URINATE AT THIS TIME
[2020-10-06 21:18] LABS: BASOPHILS % (AUTO) 1 % (0-1); EOSINOPHILS % (AUTO) 0 % (1-7); LYMPHOCYTES % (AUTO) 25 % (22-44); MEAN CORPUSCULAR HEMOGLOBIN 29.9 pg (27.0-34.8); MEAN CORPUSCULAR HGB CONC 33.5 g/dL (32.4-35.8); MEAN PLATELET VOLUME 7.7 fL (7.4-10.4); MONOCYTES % (AUTO) 13 % (2-9); NEUTROPHILS % (AUTO) 61 % (42-75); PLATELET COUNT 329 x10^3/uL (130-400); RED BLOOD COUNT 4.84 x10^6/uL (3.82-5.3); RED CELL DISTRIBUTION WIDTH 15.8 % (9.6-15.2)
[2020-10-06 21:22] LABS: MD NO
[2020-10-06 21:32] LABS: ALANINE AMINOTRANSFERASE 19 U/L (12-78); ALBUMIN 3.7 g/dL (3.4-5.0); ANION GAP 6 mmol/L (5-15); CALCIUM 9.2 mg/dL (8.5-10.1); CHLORIDE 112 mmol/L (98-107); CREATININE 0.94 mg/dL (0.55-1.02)
[2020-10-06 21:34] LABS: ALKALINE PHOSPHATASE 81 U/L (45-117); BILIRUBIN,TOTAL 0.3 mg/dL (0.2-1.0); TOTAL PROTEIN 7.9 g/dL (6.4-8.2)
--- NOTE | 2020-10-06 21:44 | NUR ---
PT STILL UNABLE TO URINATE, PT ALSO REFUSING IN AND OUT CATH. ERP AWARE
== END 2020-10-06 22:23 | disposition home or self-care (01) ==
LOC: ED 19:36
DX: G89.29 Other chronic pain (principal); Z20.822 Contact with and (suspected) exposure to COVID-19; M54.5 Low back pain; R10.31 Right lower quadrant pain; R10.32 Left lower quadrant pain; J44.9 Chronic obstructive pulmonary disease, unspecified; E86.1 Hypovolemia; Z72.9 Problem related to lifestyle, unspecified
CPT/HCPCS: 36415; 71045; 80053; 85025; 99284; U0003

== ENCOUNTER 2020-10-07 21:16 | Emergency (ER) | payer MEDICAID ==
[~2020-10-07] VITALS: Ht 157.5 cm; Wt 65.1 kg
[2020-10-07 21:23] VITALS: BP 124/84
--- NOTE | 2020-10-07 22:29 | NUR ---
PT CALLED FOR ROOM, NA X 1
--- NOTE | 2020-10-07 22:45 | NUR ---
NA X 2
--- NOTE | 2020-10-07 23:09 | NUR ---
NA X 3
== END 2020-10-07 23:13 | disposition left against medical advice (07) ==
LOC: ED 21:46
DX: R42 Dizziness and giddiness (principal); Z53.21 Procedure and treatment not carried out due to patient leaving prior to being seen by health care provider